=== PATIENT | male | born 1940 | race Two or more races ===

== ENCOUNTER 2023-06-12 12:07 | Emergency (ER) | payer OTHER ==
[~2023-06-12] VITALS: Ht 167.6 cm; Wt 103.0 kg
[2023-06-12 13:31] VITALS: BP 148/87; PULSE 56; RESP 18; TEMP 98; O2SAT 96
[2023-06-12] MEDS ORDERED: CIPR-173 PO (15:27)
== END 2023-06-12 15:38 | disposition home or self-care (01) ==
LOC: ER 12:07
DX: N39.0 Urinary tract infection, site not specified (principal); E11.9 Type 2 diabetes mellitus without complications; E78.5 Hyperlipidemia, unspecified; I10 Essential (primary) hypertension; Z46.6 Encounter for fitting and adjustment of urinary device
CPT/HCPCS: 51702; 81002